=== PATIENT | male | born 1985 | race Caucasian/White ===

== ENCOUNTER 2023-01-17 13:09 | Emergency (ER) | payer MEDICAID, SELFPAY ==
[2023-01-17 13:23] VITALS: BP 118/78; PULSE 103; O2SAT 96; BMI 26.4
--- NOTE | 2023-01-17 13:38 | ED_ITS ---
HPI - General Adult General Chief complaint: Ear Problems Stated complaint: CANNOT HEAR S/P EARPLUG USE,?IMPACTED,FROM [facility] Source: patient and EMS Mode of arrival: EMS Limitations: no limitations History of Present Illness HPI narrative: 37-year-old male presents with bilateral ears clogged, patient tells me he gets recurrent cerumen impaction he is coming from your this on a [address], they tried to get the cerumen out there however they were unable to. Patient denies ear pain. He just reports difficulties with hearing. Denies head trauma, tinnitus, otorrhea, fevers and chills. Related Data Previous Rx's Medication Instructions Recorded carbamide peroxide 6.5 % ear drops 5 drp otic (ear) left DAILY 4 days 01/17/23 (Debrox) #15 mL Allergies Allergy/AdvReac Type Severity Reaction Status Date / Time Unable to Assess Allergy Unverified 01/17/23 13:20 Review of Systems Review of Systems: Constitutional : No Weight loss, No Fever, No Chills, No Fatigue, No Malaise ENT/Mouth : No sore throat, No Rhinorrhea, + clogged ears Eyes: No Eye Pain, No Swelling, No Redness Cardiovascular : No Chest Pain, No SOB, No Dyspnea on Exertion, No Orthopnea, No Edema, No Palpitations Respiratory : No Cough, No Sputum, No Wheezing Gastrointestinal : No Nausea, No Vomiting, No Diarrhea, No Constipation, No abdominal Pain, No Hematochezia, No Melena Genitourinary : No Dysuria, No Urinary Frequency, No Hematuria, Musculoskeletal : No joint pain, No Myalgias, No Joint Swelling Skin : No Skin Lesions, No rash Neuro : No Weakness, No Numbness, No Dizziness, No Headache All other systems reviewed and are negative Yes all other systems are reviewed and are negative [facility] Past Medical History Attestation statement: The following information was validated with the patient. Source: old records reviewed and nursing notes reviewed Physical Exam ED Vital Signs: BMI result Body Mass Index 26.4 Appearance: Alert.? Oriented X3.? No acute distress.? Head: Normocephalic, atraumatic, no step-offs or deformities Eyes: Pupils equal, round and reactive to light.? ENT: Pharynx normal.?+ b/l ear canals with significant cerumen impaction Neck: Normal inspection.? Neck supple.? CVS:? Pulses normal.? Respiratory: No respiratory distress. Skin: Skin warm and dry.? Normal skin color.? Normal skin turgor.? Extremities: No lower extremity edema.? No calf ttp. 5/5 strength to bilateral upper and lower extremities Neuro: Oriented X 3.? No motor deficit.? No sensory deficit. CN 2-12 intact Course Reevaluation(s) Reevaluation #1: Ears were irrigated using water and hydrogen peroxide with a 300 cc syringe, a large amount of cerumen dislodged. Patient can now hear. Will discharge back to [facility]. No signs of otitis media after irrigation. Educated patient on diagnosis and treatment plan, answered all question, patient verbalizes understanding. At this time patient will be discharged home, advised to return with new or worsening symptoms. Educated on worrisome signs and symptoms and when to return. At this time I feel comfortable discharge home. Time: 13:42 Medical Decision Making Medical Decision Making [facility] Narrative: 1341 37-year-old male presents with bilateral cerumen impaction coming from [facility] Physical examination with significant cerumen impaction bilaterally. No pain with manipulation of external ear. No mastoid tenderness. This is likely bilateral cerumen impaction. No signs of otitis media, externa, foreign bodies or mastoiditis Planned irrigation with water, hydrogen peroxide. Prior to doing this will apply Colace to ears Differential Diagnosis Differential Diagnoses: The differential diagnosis associated with the presentation includes This is likely bilateral cerumen impaction. No signs of otitis media, externa, foreign bodies or mastoiditis Admission/Observation Consideration of admission/observation: Escalation of care including admission/observation considered Unlikely Discharge Plan Discharge Clinical Impression: Cerumen impaction Patient Disposition: Home, Self-Care Additional Instructions: Take your medications as prescribed. If you were prescribed antibiotics today, it is important that you take your medication to their entirety, do not skip any doses, do not finish them early. Follow-up with your primary care provider this week. Return to the emergency department with new or worsening symptoms. Such as fevers, chills, chest pain, shortness of breath, nausea, vomiting, dizziness, headache, vision changes, lethargy In case of emergency call 911 Prescriptions: New Debrox 6.5 % drops 5 drp otic (ear) left DAILY 4 Days Qty: 15 0RF Referrals: ED Physician,Jann [Emergency Provider] - 2 days Bebo Fowler [Physician] - 2 days Stand Alone Forms: Work/School Release
[2023-01-17] MEDS: Docusate Sodium 100 MG/10 ML LIQUID PO (13:39)
--- NOTE | 2023-01-17 13:39 | PC.NURSE ---
colace given by provider, with saline, to irrigate ear canal. Cerumen disimpacted and pt can hear again
[2023-01-17 14:00] VITALS: BP 140/88; PULSE 100; RESP 16; TEMP 36.9; O2SAT 98
== END 2023-01-17 14:51 | disposition home or self-care (01) ==
PROVIDERS: Emergency Provider Emergency Medicine
DX: H61.23 Impacted cerumen, bilateral (principal); H92.03 Otalgia, bilateral
CPT/HCPCS: 69209; 99282; 99284